=== PATIENT | female | born 1955 | race Caucasian/White ===

== ENCOUNTER 2018-03-01 19:14 | Emergency (ER) | payer MEDICARE ==
[~2018-03-01] VITALS: Ht 165.1 cm; Wt 93.1 kg
[~2018-03-01 19:14] MED LIST: GABA-826 PO; LEVO112T4 PO; OXYC10TA6 PO
[2018-03-01 19:20] VITALS: BP 125/89
== END 2018-03-01 20:06 | disposition home or self-care (01) ==
LOC: ED 20:00
DX: J98.01 Acute bronchospasm (principal); J01.10 Acute frontal sinusitis, unspecified; E03.9 Hypothyroidism, unspecified; F17.200 Nicotine dependence, unspecified, uncomplicated
CPT/HCPCS: 99283; 99406